=== PATIENT | male | born 1930 | race Caucasian/White ===

== ENCOUNTER → 2016-06-01 | Outpatient (CLI) | payer OTHER ==
[~2016-06-01] MED LIST: IOPAMIDOL (ISOVUE-300) 100 ML BTL IV ONE
--- NOTE | 2016-06-01 17:48 | CT ---
CT Abdomen and Pelvis (Without and With Contrast) CT Urogram at 1135 hours History: Hematuria. Technique: Spiral images were obtained through the abdomen and pelvis, without contrast, for renal s tone evaluation. 96 mL of Isovue-300 IV contrast were administered. After 2 minute and 10 minute de lays, spiral imaging was obtained through the abdomen and pelvis, without compression. Images were r econstructed in multiple planes for CT urogram imaging. Volume rendering was also performed. Dose r eduction techniques were utilized. CT Abdomen Findings: On the noncontrast images, there is no evidence of calculus projected over the k idneys or along the expected path of the ureters. No bladder calculus is seen, as well. With IV contrast administration, there is good uptake and excretion of contrast by the kidneys. No f illing defects in the urinary tracts. In the left kidney upper pole, there is an 8-mm possible cyst, and in the lower pole left kidney, there are 9-mm and 4-mm possible cysts although difficult to kacie acterize due to size. No solid exophytic masses noted in either kidney. No suspicious renal masses or urinary tract masses. Cholelithiasis, with at least four gallstones up to 1.5 cm. No pericholecystic fluid. In the right lobe of the liver, there is a 2-cm simple hepatic cyst, image #32 of series #4. No solid renal rony s noted. In the left lobe of the liver, there is an additional 2-cm probable cyst on image #27 of se raquel #4. Multiple pancreatic calcifications consistent with chronic pancreatitis, with associated fatty replac ement. No evidence of acute pancreatitis. No pancreatic ductal dilation. No biliary ductal dilatio n. Extensive atherosclerotic abdominal aorta calcifications, without aneurysm. No adrenal enlargement. No significant adenopathy. No bowel obstruction. CT Pelvis Findings: Delayed images demonstrate partial contrast opacifying the bladder posteriorly, with incomplete filling of the bladder. No definite bladder masses although 2/3rds of the anterior b ladder not well visualized due to no contrast opacification. No evidence of diverticulitis. No sign ificant adenopathy. Severe degenerative disk disease lumbar spine at L3-L4, L4-L5, and L5-S1, with circumferential osteop hytes and severe bilateral facet arthropathy, resulting in moderate to severe central canal stenosis at L3-L4 and L4-L5, and moderate to severe bilateral neural foraminal stenosis, worse at L4-L5 and L 5-S1. Impression: 1. No nephrolithiasis or urinary tract obstruction. 2. Probable subcentimeter left renal cysts, without evidence of solid renal masses or urothelial mas ses involving bilateral urinary tracts. 3. Incomplete opacification of the bladder, without definite bladder mass. Consider ultrasound blad nusrat evaluation. 4. Atherosclerotic aorta, without aneurysm. 5. Severe degenerative lumbar spine. 6. Cholelithiasis. 7. Hepatic cysts. 8. Sequela of chronic pancreatitis, with multiple pancreatic calcifications and fatty replacement.
== END ==
LOC: FIMAGING 10:37
PROVIDERS: ATTEND Internal Medicine
DX: R31.9 Hematuria, unspecified (principal); N28.9 Disorder of kidney and ureter, unspecified; I70.0 Atherosclerosis of aorta; M51.36 Other intervertebral disc degeneration, lumbar region; K80.20 Calculus of gallbladder without cholecystitis without obstruction; K76.89 Other specified diseases of liver; K86.89 Other specified diseases of pancreas
CPT/HCPCS: 74178; Q9967

== ENCOUNTER 2016-06-28 10:03 | Inpatient (IN) | payer OTHER ==
--- NOTE | 2016-06-28 10:47 | EDPHY ---
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 Patient's daughter 1st noticed 1 week ago mild left hand swelling, no known trauma, the patient's son saw him on Wednesday, 2 days ago in noticed increased redness and swelling, they brought him to urgent care, he had a pustule on his hand and they were able to send a culture, culture back today shows MRSA. Patient was placed on amoxicillin. Patient reports increased fatigue. He denies chest pain or shortness of breath. Patient reports he stopped taking his Lasix about 1 week ago because he felt like it was keeping him awake at night. He reports a mild increase in leg swelling. REVIEW OF SYSTEMS: A comprehensive 10 point review of systems is otherwise negative aside from elements mentioned in the history of present illness. (Nasima Allen) - Physical Exam Exam: Physical Exam Gen: Alert and Oriented, NAD, hard of hearing HEENT: PERRL, moist mucous membranes NECK: no meningismus CV: Distant heart tones PULM: CTAB, no wheezes ABDOMEN: Obese, soft, non tender to palpation, BS present BACK: No CVA tenderness NEURO: Moves all extremities, follows commands, no facial asymmetry EXTREMITIES: Left hand with dorsal swelling and erythema, tenderness to palpation, no erythema or tenderness distal to PIP joints, erythema extends up just proximal to elbow, patient unable to fully extend fingers, he is able to make a fist without difficulty, 2+ radial pulses, sensation intact to light touch SKIN: 2+ pitting edema bilateral lower extremities PSYCH: answers questions appropriately. (Nasima Allen) Constitutional: Initial Vital Signs Temperature (C) 36.4 C 06/28/16 10:10 Heart Rate 78 06/28/16 10:10 Respiratory Rate 20 06/28/16 10:10 Blood Pressure 129/70 H 06/28/16 10:10 O2 Sat (%) 92 06/28/16 10:10 O2 Delivery Mode Room Air Allergies/Adverse Reactions: No Known Allergies Allergy (Verified 06/28/16 10:04) Home Medications: Medication Instructions Recorded Aspirin [Aspirin 81mg (*)] 81 mg PO DAILY 06/28/16 Cholecalciferol (Vitamin D3) 5,000 unit PO DAILY 06/28/16 [Vitamin D3] Dabigatran Etexilate Mesyl 150 mg PO BID 06/28/16 [Pradaxa 150 MG (*)] Ezetimibe [Zetia 10 MG (*)] 10 mg PO DAILY 06/28/16 Herbals/Supplements -Info Only 1 ea PO DAILY 06/28/16 metFORMIN SR [Glucophage XR 500 mg 1,000 mg PO BIDMEAL 06/28/16 (*)] Acetaminophen [Tylenol 325mg (*)] 650 mg PO Q4HRS PRN #0 tab 07/02/16 Polyethylene Glycol 3350 [Miralax 17 gm PO DAILY PRN #0 pkt 07/02/16 17 gm (*)] Sennosides/Docusate Sodium 1 - 2 tab PO BID #0 tab 07/02/16 [Senokot-S] Vancomycin HCl/Normal Saline 1 gm IV Q12H #0 bag 07/02/16 [Vancomycin 1 gm (Premix)] Medical Decision Making - Diagnostics Imaging: Left hand x-ray independently reviewed by me- Impression: 1. There is no acute fracture identified. 2. Scapholunate diastases, indeterminate chronicity. 3. Multilevel degenerative osteoarthritic features. Dictated By: Oleg Mon MD Chest x-ray independently reviewed by me- Impression: Cardiomegaly with mild chronic pulmonary venous hypertension in this patient with a prior CABG. Dictated By: Oleg Mon MD (Nasima Allen) ED Course/Re-evaluation: 86-year-old [id number] diabetic presents with a cellulitis to his left hand. Patient had hand swelling that started on 7 days ago, 2 days ago was started on Keflex and had a culture at Urgent Care that today resulted MRSA. Patient presents to the ER today with worsening hand redness and swelling with fatigue. IV established, CBC, chemistry panel, blood cultures and left hand x-ray obtained. Patient has an elevated white blood cell count, and blood sugar that is 265. X-ray obtained. Patient his started on 1 g of Vanco and has been admitted to the hospitalist for further IV antibiotics. ( Nasima Allen) Differential Diagnosis: Diagnosis considered but not limited to abscess, cellulitis, tenosynovitis, necrotizing fasciitis (Nasima Allen) Other Provider: Sepsis Evaluation Note: The patient presents to the ED with potential infection identified as cellulitis. The patient did not have evidence of SIRS; him is afebrile, normal heart rate, normal respiratory rate, and normal WBC. Patient did not have evidence of end-organ dysfunction. The patient was evaluated and managed by the Physician [employer]/ Nurse Practitioner. I discussed the patient's presentation and course with the midlevel provider with them and agree with the evaluation. My co-signature indicates that I have reviewed this chart and I agree with the findings and plan of care as documented. I am the secondary supervising physician. (Sammie Florentino) - Data Points Laboratory Results: Laboratory Results 06/28/16 10:50 06/28/16 10:50 Medications Given: Discontinued Medications Aspirin (Aspirin) 81 mg PO DAILY AMISH Stop: 12/26/16 08:59 Last Admin: 07/02/16 09:05 Dose: 81 mg Dabigatran (Pradaxa) 150 mg PO BID AMISH Stop: 12/25/16 13:59 Last Admin: 07/02/16 09:05 Dose: 150 mg Docusate Sodium (Colace) 100 mg PO DAILY AMISH Stop: 12/26/16 08:59 Last Admin: 06/29/16 09:27 Dose: 100 mg Ezetimibe (Zetia) 10 mg PO DAILY AMISH Stop: 12/25/16 13:59 Last Admin: 07/02/16 09:05 Dose: 10 mg Vancomycin/Sodium Chloride (Vancomycin 1 Gm (Premix)) 250 mls @ 250 mls/hr IV EDNOW ONE PRN Reason: Protocol Stop: 06/28/16 12:39 Last Admin: 06/28/16 12:06 Dose: 250 mls Vancomycin/Sodium Chloride (Vancomycin 1 Gm (Premix)) 250 mls @ 250 mls/hr IV Q12H [facility] Stop: 07/29/16 00:00 Last Admin: 06/29/16 14:26 Dose: 250 mls Vancomycin HCl 750 mg/ (Dextrose) 165 mls @ 165 mls/hr IV Q12H [facility] PRN Reason: Protocol Stop: 07/30/16 02:29 Last Admin: 06/30/16 14:55 Dose: 165 mls Vancomycin/Sodium Chloride (Vancomycin 1 Gm (Premix)) 250 mls @ 250 mls/hr IV Q12H [facility] PRN Reason: Protocol Stop: 07/31/16 02:29 Last Admin: 07/02/16 15:25 Dose: 250 mls Insulin Human Lispro (Humalog Lispro) 0 unit SC TIDMEAL [facility] PRN Reason: Protocol Stop: 12/25/16 17:59 Last Admin: 07/02/16 12:20 Dose: 4 units Magnesium Hydroxide (Milk Of Magnesia) 30 ml PO DAILY PRN; Protocol PRN Reason: Constipation Stop: 12/26/16 15:29 Last Admin: 06/30/16 09:49 Dose: 30 ml Metformin HCl (Glucophage Xr) 1,000 mg PO BIDMEAL [facility] Stop: 12/25/16 17:59 Last Admin: 07/02/16 07:54 Dose: 1,000 mg Oxycodone HCl (Oxycodone Ir) 5 - 10 mg PO Q3HRS PRN PRN Reason: Pain, Severe Able to Take PO Stop: 07/08/16 13:49 Last Admin: 06/29/16 20:37 Dose: 10 mg Polyethylene Glycol (Miralax) 17 gm PO DAILY PRN; Protocol PRN Reason: Constipation, patient prefers Stop: 12/26/16 15:29 Last Admin: 06/30/16 12:37 Dose: 17 gm Senna (Senexon Oral Liquid) 8.8 mg PO BID [facility] PRN Reason: Protocol Stop: 12/26/16 15:30 Last Admin: 06/29/16 20:38 Dose: Not Given Senna/Docusate Sodium (Senokot-S) 1 - 2 tab PO BID [facility] PRN Reason: Protocol Stop: 12/26/16 20:59 Last Admin: 07/02/16 09:05 Dose: 2 tab Departure - Departure Disposition: [facility] Acute Clinical Impression: Cellulitis Qualifiers: Site of cellulitis: extremity Site of cellulitis of extremity: upper extremity Laterality: left Qualified Code(s): L03.114 - Cellulitis of left upper limb Condition: Fair
[2016-06-28 11:14] LABS: % IMMATURE GRANULYOCYTES 0.7 % (0.0-1.1); ABSOLUTE IMMATURE GRANULOCYTES 0.07 10^3/uL (0.00-0.10); ADD DIFF? NO; ADD MORPH? NO; ADD SCAN? NO; ATYPICAL LYMPHOCYTE FLAG 20 (0-99); FRAGMENT RBC FLAG 0 (0-99); HEMATOCRIT 39.4 % (40.0-51.0); HEMOGLOBIN 13.4 g/dL (13.7-17.5); LEFT SHIFT FLG 0 (0-99); LIPEMIA HEMOLYSIS FLAG 90 (0-99); MEAN CELL HEMOGLOBIN 31.5 pg (27.9-34.1); MEAN CELL VOLUME 92.5 fL (81.5-99.8); MEAN PLATELET VOLUME 9.8 fL (8.7-11.7); PLATELET CLUMPS FLAG 0 (0-99); PLATELET COUNT 214 10^3/uL (150-400); RED BLOOD CELL COUNT 4.26 10^6/uL (4.40-6.38); RED CELL DISTRIBUTION WIDTH 13.9 % (11.5-15.2)
[2016-06-28] MEDS ORDERED: VANCOMYCIN HCL/NORMAL SALINE 250 ML IV ONE (11:40)
[2016-06-28 11:54] LABS: ANION GAP 12 mEq/L (8-16); CALCIUM 9.3 mg/dL (8.5-10.4); CARBON DIOXIDE 24 mEq/l (22-31); CHLORIDE 102 mEq/L (97-110); CREATININE 0.5 mg/dL (0.7-1.3); GLOMERULAR FILTRATION RATE > 60; GLUCOSE 264 mg/dL (70-100); POTASSIUM 4.4 mEq/L (3.5-5.2); SODIUM 138 mEq/L (134-144)
[2016-06-28] MEDS ORDERED: ONDANSETRON 4 MG/2 ML VIAL IVP PRN (13:50)
[2016-06-28] MEDS ORDERED: ACETAMINOPHEN 325 MG TAB PO PRN (13:50)
[2016-06-28] MEDS ORDERED: ONDANSETRON DISINTEGRATING 4 MG TAB PO PRN (13:50)
[2016-06-28] MEDS ORDERED: D50W 25 GM/50 ML SYR IVP PRN (13:54)
[2016-06-28] MEDS: DABIGATRAN ETEXILATE MESYL 150 MG CAP PO SCH ×2 (15:01→20:33)
[2016-06-28] MEDS: EZETIMIBE 10 MG TAB PO SCH (15:01)
--- NOTE | 2016-06-28 16:30 | PDGENHP ---
History and Physical - Chief Complaint hand redness, swelling - History of Present Illness 86 yo male with h/o CAD, DM, bovine AVR presents to ED with hand swelling and redness. This started about a week ago and has progressively worsening despite taking Cephalexin. No fevers/chills. No CP or SOB. There is no h/o injury or trauma. History Information - Allergies/Home Medication List Allergies/Adverse Reactions: No Known Allergies Allergy (Verified 06/28/16 10:04) Home Medications: Aspirin [Aspirin 81mg (*)] 81 mg PO DAILY 06/28/16 [Last Taken 06/27/16] Cephalexin [Keflex (*)] 500 mg PO TID 06/28/16 [Last Taken 06/27/16 20:00] Cholecalciferol (Vitamin D3) [Vitamin D3] 5,000 unit PO DAILY 06/28/16 [Last Taken 06/27/16] Dabigatran Etexilate Mesyl [Pradaxa 150 MG (*)] 150 mg PO BID 06/28/16 [Last Taken 06/27/16 20:00] Ezetimibe [Zetia 10 MG (*)] 10 mg PO DAILY 06/28/16 [Last Taken 06/27/16] Herbals/Supplements -Info Only 1 ea PO DAILY 06/28/16 [Last Taken Unknown] metFORMIN SR [Glucophage XR 500 mg (*)] 1,000 mg PO BIDMEAL 06/28/16 [Last Taken 06/27/16] I have personally reviewed and updated: family history, medical history, social history, surgical history - Past Medical History Additional medical history: bovine AVR, CAD s/p stents, neuropathy, DM, spinal stenosis (cervical and lumbar), pacemaker - Surgical History Additional surgical history: CABG x5, attempted anterior cervical spinal fusion due to anesthesia complications - Family History Positive for: non-pertinent - Social History Smoking Status: Former smoker Alcohol Use: None Drug Use: Other (CBD oil for chronic pain) Review of Systems ROS: 10pt was reviewed & negative except for what was stated in HPI & below Physical Exam Temp Pulse Resp BP Pulse Ox 36.4 C 95 16 115/74 90 L 06/28/16 16:02 06/28/16 16:02 06/28/16 16:02 06/28/16 16:02 06/28/16 16:02 Constitutional: no apparent distress Eyes: PERRL Ears, Nose, Mouth, Throat: moist mucous membranes Cardiovascular: regular rate and rhythym, systolic murmur Respiratory: no respiratory distress, clear to auscultation Gastrointestinal: normoactive bowel sounds, soft, non-tender abdomen Skin: warm Musculoskeletal: other (left hand with marked erythema and edema, erythema extends into mid forearm. distal sensation intact, 2+ radial pulse) Neurologic: AAOx3 Psychiatric: interacting appropriately Lab Data & Imaging Review 06/29/16 05:16 06/29/16 05:16 WBC 10.41 10^3/uL (3.80-9.50) H 06/28/16 10:50 RBC 4.26 10^6/uL (4.40-6.38) L 06/28/16 10:50 Hgb 13.4 g/dL (13.7-17.5) L 06/28/16 10:50 Hct 39.4 % (40.0-51.0) L 06/28/16 10:50 MCV 92.5 fL (81.5-99.8) 06/28/16 10:50 MCH 31.5 pg (27.9-34.1) 06/28/16 10:50 MCHC 34.0 g/dL (32.4-36.7) 06/28/16 10:50 RDW 13.9 % (11.5-15.2) 06/28/16 10:50 Plt Count 214 10^3/uL (150-400) 06/28/16 10:50 MPV 9.8 fL (8.7-11.7) 06/28/16 10:50 Neut % (Auto) 75.7 % (39.3-74.2) H 06/28/16 10:50 Lymph % (Auto) 11.0 % (15.0-45.0) L 06/28/16 10:50 Sargent % (Auto) 12.0 % (4.5-13.0) 06/28/16 10:50 Eos % (Auto) 0.2 % (0.6-7.6) L 06/28/16 10:50 Baso % (Auto) 0.4 % (0.3-1.7) 06/28/16 10:50 Nucleat RBC Rel Count 0.0 % (0.0-0.2) 06/28/16 10:50 Absolute Neuts (auto) 7.89 10^3/uL (1.70-6.50) H 06/28/16 10:50 Absolute Lymphs (auto) 1.14 10^3/uL (1.00-3.00) 06/28/16 10:50 Absolute Monos (auto) 1.25 10^3/uL (0.30-0.80) H 06/28/16 10:50 Absolute Eos (auto) 0.02 10^3/uL (0.03-0.40) L 06/28/16 10:50 Absolute Basos (auto) 0.04 10^3/uL (0.02-0.10) 06/28/16 10:50 Absolute Nucleated RBC 0.00 10^3/uL (0-0.01) 06/28/16 10:50 Immature Gran % 0.7 % (0.0-1.1) 06/28/16 10:50 Immature Gran # 0.07 10^3/uL (0.00-0.10) 06/28/16 10:50 Sodium 138 mEq/L (134-144) 06/28/16 10:50 Potassium 4.4 mEq/L (3.5-5.2) 06/28/16 10:50 Chloride 102 mEq/L (97-110) 06/28/16 10:50 Carbon Dioxide 24 mEq/l (22-31) 06/28/16 10:50 Anion Gap 12 mEq/L (8-16) 06/28/16 10:50 BUN 16 mg/dL (7-23) 06/28/16 10:50 Creatinine 0.5 mg/dL (0.7-1.3) L 06/28/16 10:50 Estimated GFR > 60 06/28/16 10:50 Glucose 264 mg/dL (70-100) H 06/28/16 10:50 Calcium 9.3 mg/dL (8.5-10.4) 06/28/16 10:50 Assessment & Plan Assessment: Hand cellulitis - Focal fluid collection over 2nd MCP without drainage, though raises some concern for septic joint. Prior culture at [facility] grew MRSA. Xray showed just OA changes. Erythema extending up forearm seems to be receding since receiving IV Vanco in the ED. -hand surgery to evaluate -ID consult planned for tomorrow -cont IV Vancomycin -BCx's pending A fib - rate controlled, stroke prevention with Pradaxa, continue for now. DM - bg >200 on arrival. CAD - stable, no symptoms, cont outpt meds. Full code Dispo - inpt, will likely require >48 hrs hospitalization for IV atbx and management of cellulitis
--- NOTE | 2016-06-28 17:52 | SOAPPROG ---
SOAP Progress Note Assessment/Plan: Assessment: HPI: 86 y/o male with left dorsal index MCPJ superficial wound which developed several days ago s/p I&D, culture (demonstrating MRSA) at [facility] , and initiation of Amoxicillin. He presented to the [facility] ED due to persistent infection in this area as well as surrounding erythema extending overlying his dorsal hand, wrist and forearm. PE: General: NAD AVSS LUE: 4mm x 3mm raised area overlying the dorsal index MCPJ c/w a superficial abscess , no active drainage // no pain with passive or active ROM of left index MCPJ / / no pain with passive or active ROM of left wrist +EDC-index, EIP, EDC-long, ring, and small fingers +FDS, FDP +DI, PI +M/R/U SILT Left hand radiographs: diffuse soft tissue swelling, diffuse arthritis Assessment and Plan 86 y/o male with a recurrent left dorsal index MCPJ superficial abscess (+MRSA) s/p previous I&D several days ago -As such, I have discussed with the patient the risks, benefits, alternatives, and complications associated with both non-operative (specifically, IV antibiotics) and operative (specifically, left hand abscess decompression with irrigation and debridement) forms of treatment and I am recommending operative intervention -He fully understood the risks, benefits, alternatives, and complications associated with both forms of treatment and wishes to proceed with operative intervention -He has provided his verbal consent for the procedure and the procedure was performed at the bedside (see operative note for details of procedure) -Remain in current dressing with packing strip in place for the next 48 hours ( do not remove dressing) -Keep left hand clean and dry -Recommend consultation with Infectious Disease for long-term IV antibiotic recommendations as abscess cavity communicated with extensor tendons to the index finger -Will change dressing and packing strip in 2 days and allow wound to heal from the inside out -Full consult and operative note to follow Plan: 06/28/16 17:45 Objective: Vital Signs Temp Pulse Resp BP Pulse Ox 36.4 C 95 16 115/74 90 L 06/28/16 16:02 06/28/16 16:02 06/28/16 16:02 06/28/16 16:02 06/28/16 16:02 ICD10 Worksheet Patient Problems: Problems Problem Status Onset Nicotine dependence Active
--- NOTE | 2016-06-28 17:54 | POSTOPPROG ---
Post Op Note Date of Operation: 06/28/16 Surgeon: Lorne Naik Travel Director: None Anesthesiologist: None Anesthesia: Local (Specify) Pre-op Diagnosis: Left dorsal index MCPJ abscess Post-op Diagnosis: Left dorsal index MCPJ abscess Indication: Left dorsal index MCPJ abscess Procedure: Left hand abscess decompression with irrigation and debridement Findings: communication of abscess cavity with the EDC-index and the EIP tendons Inf/Abcess present in the surg proc area at time of surgery?: Yes Depth: Deep Incisional (Fascial) EBL: Minimal Complications: None Drains: Other (1/4 inch nu-gauze packing strip was placed into the wound)
[2016-06-28] MEDS: INSULIN LISPRO 100 UNIT/ML SC SCH (18:22)
[2016-06-28] MEDS: metFORMIN SR 500 MG TAB PO SCH (18:37)
[2016-06-28] MEDS: oxyCODONE IR 5 MG TAB PO PRN (20:33)
--- NOTE | 2016-06-28 21:04 | GCON ---
Patient Name: VONNIE SO N-Number: [id number] Date of : 1930 Patient Status: Inpatient Attending Doctor: Kae Sun MD Consulting Doctor: Lorne Naik MD Date of service: 06/28/16 CPT codes: CPT code 67582 ER visit requiring admission or initial inpatient visit, level three Modifier 57 decision for surgery CHIEF COMPLAINT: Left hand swelling and erythema HISTORY OF PRESENT ILLNESS: This is a very pleasant 86 year old male with a significant history for sustaining a superficial laceration to the dorsal aspect of his left index MCPJ several days ago. Following the laceration, he developed a small abscess in this area and was initially evaluated at the [facility] where he underwent an I&D and culture and was started on oral Amoxicillin. The culture results demonstrated MRSA and he presented to the [facility] ED earlier today due to persistent swelling, erythema and pain. PROBLEM LIST: Left hand abscess, left hand, wrist, and forearm cellulitis, atrial fibrillation , DM, CAD s/p CABG in 1996, stents, pacemaker, aortic valve replacement (bovine valve in October of 2013), bilateral rotator cuff tears, cervical and lumbar stenosis, RADHIKA PAST MEDICAL HISTORY: DM, CAD s/p CABG in 1996, stents, pacemaker, aortic valve replacement (bovine valve in October of 2013), bilateral rotator cuff tears, cervical and lumbar stenosis, RADHIKA SURGERIES: CABG, stents, pacemaker, aortic valve replacement SOCIAL HISTORY: Denies tobacco, alcohol, or illicit drug use FAMILY HISTORY: Non-contributory CURRENT MEDICATIONS: See Subtextual ALLERGIES: NKDA REVIEW OF SYSTEMS Constitutional: No unexpected weight loss, weight gain, fevers, chills, or fatigue. Eyes: No blurred or double vision, no eye pain, redness or swelling. ENT: No headaches, difficulty swallowing, nose bleeds, tinnitus, or earaches. Cardiovascular: No chest pain, palpitations, fainting or murmurs. Respiratory: No shortness of breath, wheezing, cough, of difficulty breathing. GI: No reflux, no nausea or vomiting, no constipation, diarrhea, or bloody stools. Genitourinary: No urinary frequency or urgency, no pain with urination. Skin: No skin changes, rashes, itching, or redness. Neurologic: No unsteadiness of gait, no dizziness, tremors, or seizures. Psychiatric: No nervousness, anxiety, depression, or hallucinations. Hematologic: No increased bleeding or easy bruising. Endocrine: No excessive thirst or urination and no heat or cold intolerances. Allergic: No reactions to food or environment. Musculoskeletal: See history of present illness. PHYSICAL EXAM General: No apparent distress. Orientation: Alert and oriented times three Mood and affect: Calm, appropriate. Gait and station: Normal gait and station. Skin: Left dorsal index MCPJ abscess with surrounding cellulitis Lymph: Non tender neck, axillary and inguinal nodes. Chest: Equal expansion, no pain with deep breaths, speaks in coherent sentences. Cardiovascular: Regular pulse. Abdomen: Soft, non-tender, no masses, no palpable hernias. Bilateral wrist examination Inspection/palpation: Right: Normal resting posture. Left: Left dorsal hand, wrist, and forearm erythema Wrist ROM Wrist Flexion: 90 / 70 / 90 Extension: 90 / 70 / 90 Forearm Supination: 0-80 / 0-60 / 0-80 Pronation: 0-80 / 0-60 / 0-80 Wrist/hand strength (R / L / Normal) EDC: 5 / 4 / 5 EPL (PIN): 5 / 5 / 5 FPL (AIN): 5 / 5 / 5 FDS (C8): 5 / 5 / 5 FDP (C8): 5 / 5 / 5 FDP-I (C8 / AIN): 5 / 5 / 5 DI (C8-T1): 5 / 5 / 5 PI (C8-T1): 5 / 5 / 5 Wrist/hand sensory MABC : + / + / + LABC: + / + / + Median: + / + / + Palmar cutaneous: + / + / + Radial: + / + / + SBRN: + / + / + Ulnar: + / + / + DSBUN: + / + / + Bilateral finger examination Inspection/palpation: Right: Soft, no tenderness to palpation. Left: 4mm x 3mm superficial abscess overlying the dorsal index MCPJ, no active drainage Finger ROM Index MCP: 0-80 / 0-60 / 0-80 PIP: 0-105 / 0-85 / 0-105 DIP: 0-75 / 0-55 / 0-75 Long MCP: 0-80 / 0-80 / 0-80 PIP: 0-105 / 0-105 / 0-105 DIP: 0-75 / 0-75 / 0-75 Ring MCP: 0-80 / 0-80 / 0-80 PIP: 0-105 / 0-105 / 0-105 DIP: 0-75 / 0-75 / 0-75 Small MCP: 0-80 / 0-80 / 0-80 PIP: 0-105 / 0-105 / 0-105 DIP: 0-75 / 0-75 / 0-75 Finger motor and sensory Index FDS: + / + / + FDP: + / + / + EDC: + / + / + RDN: + / + / + UDN: + / + / + Long FDS: + / + / + FDP: + / + / + EDC: + / + / + RDN: + / + / + UDN: + / + / + Ring FDS: + / + / + FDP: + / + / + EDC: + / + / + RDN: + / + / + UDN: + / + / + Small FDS: + / + / + FDP: + / + / + EDC: + / + / + RDN: + / + / + UDN: + / + / + Medical decision making Data Imaging study: left hand radiographs, three views Action: interpreted Interpretation / pertinent findings: diffuse soft tissue swelling, diffuse arthritis Diagnoses New diagnosis: left dorsal index MCPJ superficial abscess, cellulitis Work-up planned: yes: see assessment and plan Assessment and plan This is a very pleasant 86 year old male with a left dorsal index MCPJ abscess ( +MRSA) with surrounding cellulitis after a superficial laceration several days ago -As such I have discussed with the patient the risks, benefits, alternatives, and complications associated with both non-operative (specifically, observation , intravenous antibiotics) and operative (specifically, left dorsal hand abscess decompression with irrigation and debridement) forms of treatment -The patient fully understands the risks, benefits, alternatives, and complications of both forms of treatment and the patient wishes to proceed with operative intervention as outlined above -He has provided his verbal consent for the procedure and the procedure was performed without difficulty at the patients bedside -He will leave the current dressing and packing strip in place and keep his left hand clean and dry -Plans will be made to remove his original packing strip in 2 days and replace it with a new packing strip to allow the wound to heal from the inside out -In the interim, infectious disease will be consulted and the patient will be continued on a course of intravenous antibiotics Time I have spent 80 minutes of [id number] time with the patient during this visit. Over fifty percent of this time was spent counseling the patient on the risks, benefits, alternatives, and complications of both non-operative and operative forms of treatment as outlined above. /[id number]/MODL MTDD
--- NOTE | 2016-06-28 22:20 | GOP ---
PATIENT: VONNIE SO DATE OF SERVICE: 06/28/16 PATIENT DATE OF : 1930 SURGEON: Lorne Naik M.D. [employer] OXYGEN FURNACE: NONE ANESTHESIA: Regional anesthesia by surgeon PRE-OPERATIVE DIAGNOSES: Left dorsal hand abscess (ICD-10 code L02.519 -- cutaneous abscess of hand) POST-OPERATIVE DIAGNOSES: Left dorsal hand abscess (ICD-10 code L02.519 -- cutaneous abscess of hand) OPERATIVE PROCEDURES: CPT code 22300 Left dorsal hand abscess incision and drainage CPT code 20674 Left index finger drainage of tendon sheath (EDC-index) CPT code 19376 Left index finger drainage of tendon sheath (EIP) CPT code 02559 Debridement of muscle and fascia, first 20 square cm or less Modifier 47 Regional anesthesia by surgeon EBL: 1cc COMPLICATIONS: None TOURNIQUET TIME: Not applicable IMPLANTS: One inch Nu-gauze packing strip BRIEF CLINICAL NOTE: This is a very pleasant 86 year old male with a significant history for a left dorsal index MCP joint abscess (positive for MRSA ) with surrounding cellulitis. As such, I discussed the risks, benefits, alternatives, and complications associated with both non-operative (specifically , observation, antibiotics) and operative (specifically, left dorsal hand abscess decompression with irrigation and debridement) forms of treatment. The patient fully understood the risks, benefits, alternatives, and complications associated with both forms of treatment and wished to proceed with operative intervention as outlined above. The patient signed the informed consent form for surgery. OPERATIVE NOTE: On the day of surgery, all of the patients questions were answered. A formal, Time-Out procedure was performed. The patient was identified by name, medical record number, social security number, and date of . In addition, the patients left upper extremity was identified as the correct portion of the patients body for surgery with the patients left dorsal hand and index finger being identified as the correct portions of that extremity for surgery. The extremity was then prepped and draped in the normal sterile fashion. A 50:50 mixture of 0.5% Marcaine with 1:200,000 components of epinephrine and 1% lidocaine without epinephrine was then utilized to perform a regional block of the operative site. A number 15 blade was then utilized to incise the skin longitudinally overlying the dorsal aspect of the left index finger MCP joint. Immediately after incising the skin, several milliliters of purulent material was expressed from the wound. The entire abscess cavity was then sharply surgically debrided and copiously irrigated with sterile normal saline. Of note, the EDC-index and the EIP tendons were visible at the base of the abscess cavity. As such, both tendon sheaths were incised longitudinally and both tendon sheaths were copiously irrigated with sterile normal saline. Meticulous hemostasis was obtained throughout the wound with Bovie cautery. A one-quarter inch Nu-gauze packing strip was then inserted into the wound and the distal and proximal aspects of the incision were re-approximated with 4-0 nylon sutures. The skin was then cleaned with sterile normal saline and dried. A betadine soaked gauze was then applied to the wound followed by a dry sterile dressing and compressive Coban wrap. At the completion of the procedure, the left index finger demonstrated brisk capillary refill. POST-OPERATIVE PLAN: The patient will remain in the current dressing with current packing strip in place for the next two days. In two days, the original packing strip will be removed and replaced with a new packing strip to allow the wound to heal from the inside-out. The infectious disease team will be consulted for recommendations on long-term intravenous antibiotics. /[id number]/MODL MTDD
[2016-06-29] MEDS ORDERED: VANCOMYCIN 1 GM in D5W 250 ML IV SCH
[2016-06-29] MEDS: VANCOMYCIN HCL/NORMAL SALINE 250 ML IV SCH ×2 (00:58→14:26)
[2016-06-29 03:07] LABS: HEMOGLOBIN A1C 7.9 % (4.0-6.0)
[2016-06-29 06:06] LABS: % IMMATURE GRANULYOCYTES 0.4 % (0.0-1.1); ABSOLUTE IMMATURE GRANULOCYTES 0.04 10^3/uL (0.00-0.10); ADD DIFF? NO; ADD MORPH? NO; ADD SCAN? NO; ATYPICAL LYMPHOCYTE FLAG 10 (0-99); FRAGMENT RBC FLAG 0 (0-99); HEMATOCRIT 38.6 % (40.0-51.0); LEFT SHIFT FLG 0 (0-99); LIPEMIA HEMOLYSIS FLAG 80 (0-99); MEAN CELL HEMOGLOBIN 31.4 pg (27.9-34.1); MEAN CELL HEMOGLOBIN CONCENTR. 33.7 g/dL (32.4-36.7); MEAN CELL VOLUME 93.2 fL (81.5-99.8); MEAN PLATELET VOLUME 9.7 fL (8.7-11.7); PLATELET CLUMPS FLAG 10 (0-99); PLATELET COUNT 220 10^3/uL (150-400); RED BLOOD CELL COUNT 4.14 10^6/uL (4.40-6.38)
[2016-06-29 06:11] LABS: ANION GAP 10 mEq/L (8-16); CALCIUM 8.9 mg/dL (8.5-10.4); CARBON DIOXIDE 24 mEq/l (22-31); CHLORIDE 104 mEq/L (97-110); CREATININE 0.5 mg/dL (0.7-1.3); GLOMERULAR FILTRATION RATE > 60; GLUCOSE 174 mg/dL (70-100); POTASSIUM 4.4 mEq/L (3.5-5.2); SODIUM 138 mEq/L (134-144)
[2016-06-29] MEDS ORDERED: DOCUSATE SODIUM 100 MG CAP PO SCH (09:00)
[2016-06-29] MEDS: DABIGATRAN ETEXILATE MESYL 150 MG CAP PO SCH ×2 (09:27→20:37)
[2016-06-29] MEDS: ASPIRIN 81 MG CHEWABLE TAB PO SCH (09:27)
[2016-06-29] MEDS: metFORMIN SR 500 MG TAB PO SCH ×2 (09:27→18:44)
[2016-06-29] MEDS: EZETIMIBE 10 MG TAB PO SCH (09:27)
[2016-06-29] MEDS: INSULIN LISPRO 100 UNIT/ML SC SCH ×3 (09:28→20:49)
[2016-06-29] MEDS ORDERED: LACTULOSE 20 GM/30 ML UDCUP PO PRN (15:30)
[2016-06-29] MEDS ORDERED: BISACODYL 10 MG SUPP PR PRN (15:30)
[2016-06-29] MEDS ORDERED: POLYETHYLENE GLYCOL 3350 17 GM PKT PO PRN (15:30)
[2016-06-29] MEDS ORDERED: SENNOSIDES 17.6 MG/10 ML UDL PO SCH (15:31)
--- NOTE | 2016-06-29 15:47 | HOSPPROG ---
Hospitalist Progress Note Assessment/Plan: Hand cellulitis - Improving on IV Vanc. Cx grew MRSA sensitive to Vanc, Tetracycline. BCx's pending. -cont IV Vancomycin -likely d/c on oral Doxy -f/u BCx's A fib - rate controlled, stroke prevention with Pradaxa, continue for now. DM - bg >200 on arrival. Improved now on SSI. CAD - stable, no symptoms, cont outpt meds. Full code Dispo - inpt, will likely require >48 hrs hospitalization for IV atbx and management of cellulitis. PT/OT evals recommending SNF. Daughter would like him to go to [place]. CM consult requested. Objective: Vital Signs Temp Pulse Resp BP Pulse Ox 36.7 C 79 22 H 121/66 H 93 06/29/16 11:51 06/29/16 11:51 06/29/16 11:51 06/29/16 11:51 06/29/16 11:51 Laboratory Results 06/29/16 05:16 06/29/16 05:16 06/28/16 06/29/16 06/30/16 05:59 05:59 05:59 Intake Total 155 Output Total 450 225 Balance -295 -225 - Physical Exam Constitutional: no apparent distress Eyes: PERRL Ears, Nose, Mouth, Throat: moist mucous membranes Cardiovascular: regular rate and rhythym, no murmur, rub, or gallop Respiratory: no respiratory distress, clear to auscultation Gastrointestinal: normoactive bowel sounds, soft, non-tender abdomen Skin: warm Musculoskeletal: other (Left hand with decreased erythema and edema, improved ROM, dressing c/d/i) Neurologic: AAOx3 ICD10 Worksheet Patient Problems: Problems Problem Status Onset Cellulitis Acute Nicotine dependence Active
[2016-06-29] MEDS: MAGNESIUM HYDROXIDE 30 ML UDCUP PO PRN (18:44)
--- NOTE | 2016-06-29 20:28 | GCON ---
INPATIENT INFECTIOUS DISEASE CONSULTATION REFERRING PHYSICIAN: Lorne Naik MD REASON FOR CONSULTATION: MRSA infection left hand. HISTORY OF PRESENT ILLNESS: Patient is an 86-year-old male, who has underlying diabetes, coronary a rtery disease, and a porcine aortic valve that presented to the emergency room on 06/28/2016 complai marciano of progressive swelling and redness in his left hand. The patient had been taking oral Keflex. This did not help the progression of disease over the last 5-7 days. He denied any systemic sympt oms such as fever or chills. He has noted, however, that the erythema began moving up his left arm toward the elbow. He was seen by Dr. Lorne Naik in Hand Surgery at the emergency room and was ta samir to the operating theater on the early evening of 06/28/2016. He underwent a left dorsal finger MCP abscess decompression with irrigation and debridement. The extensor tendons of the index finger were involved. No bone involvement. No joint space involvement noted. The abscess cavity was pac ked with Nu Gauze. The patient continued on empiric IV antibiotic therapy with vancomycin 1 g IV q. 12 hours. Currently, the patient is resting comfortably in his hospital bed. He denies any continu ing systemic symptoms of fevers or chills. He notes that the redness in the left upper extremity bee s regressed significantly. His hand is also significantly less swollen. PAST MEDICAL HISTORY: 1. Coronary artery disease. 2. Diabetes mellitus. 3. 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 4. Cervical lumbar spinal stenosis. 5. Cardiac arrhythmia. PAST SURGICAL HISTORY: 1. Status post pacemaker placement. 2. Status post aortic valve replacement with a porcine aortic valve. 3. Status post coronary artery stenting. ANTIBIOTICS: Vancomycin. ALLERGIES: The patient has no known drug allergies. SOCIAL HISTORY: The patient is a former tobacco user. No tobacco currently. No alcohol use. No o ther drug use noted. FAMILY HISTORY: Reviewed and noncontributory. REVIEW OF SYSTEMS: Other than that detailed above in history of present illness, a comprehensive 10 -system review is negative. PHYSICAL EXAMINATION: VITAL SIGNS: Temperature maximum is 37.3, temperature current is 36.6, heart rate is 79, respiratory rate is 20, blood pressure is 139/85. GENERAL: The patient is a well-form ed, well-nourished, elderly male, in no acute distress. He is not toxic in appearance. He is alert oriented x3. He has a pleasant demeanor. HEENT: Normocephalic for age. Atraumatic. No scleral icterus. No oral lesion. No drainage from the nares. Eyes: Conjunctivae within normal limits. P upils are equal, round, bilaterally. NECK: Supple without meningismus. LUNGS: Clear to auscultat ion bilaterally with good effort. HEART: Regular rate and rhythm. No murmur, rub, or gallop noted . No significant peripheral edema. SKIN: Warm and dry to the touch. Patient has drawn borders of erythema near the elbow of the left arm. The erythema has regressed significantly from these drawn borders. Postoperative dressing on the left hand is intact. No strike through seen. There is sti ll some residual proximal erythema intermediate up the forearm. Generally nontender in the forearm and d orsal forearm area. MUSCULOSKELETAL: No other muscle belly tenderness is noted. No joint line eff usion or arthritis seen. NEURO: Cranial nerves 2 12 seem to be intact. Peripheral sensation seems decreased in extremities. LABORATORY DATA: Patient has a CBC dated 06/29/2016, shows a white blood cell count of 10.05, hemog lobin 13.0, hematocrit 38.6, platelet count of 220. Differential is within normal limits. Serum ch emistry on 06/29/2016 shows sodium 138, potassium 4.4, chloride of 104, bicarbonate 24, BUN 16, crea tinine 0.5. MICROBIOLOGIC DATA: Patient has blood cultures dated 06/28/2016 which are pending. ASSESSMENT: Methicillin-resistant Staphylococcus aureus hand infection secondary to positive cultur e from a swab taken on 06/26/2016. This clearly explains why the therapy with beta lactam antibioti cs was unsuccessful prior to his admission. We will continue him on IV vancomycin. Given his age, 1 g IV q.12 hours may be a little high. We will empirically decrease the antibiotic to 750 mg IV q. 12 hours. We will follow up with vancomycin troughs. We will follow his clinical course. PLAN: 1. Continue vancomycin but decrease dosage given age and decreased creatinine clearance. 2. Follow clinical course, appears to be improving. 3. Follow operative opinion regarding healing of the infected wound. /[id number]/MODL
[2016-06-29] MEDS: SENNOSIDES/DOCUSATE SODIUM TAB PO SCH (20:37)
[2016-06-29] MEDS: oxyCODONE IR 5 MG TAB PO PRN (20:37)
[2016-06-30] MEDS ORDERED: VANCOMYCIN HCL/NORMAL SALINE 250 ML IV SCH (02:30)
[2016-06-30] MEDS: VANCOMYCIN 750 MG in D5W 150 ML IV SCH ×2 (03:15→14:55)
[2016-06-30] MEDS: DABIGATRAN ETEXILATE MESYL 150 MG CAP PO SCH ×2 (08:00→21:26)
[2016-06-30] MEDS: INSULIN LISPRO 100 UNIT/ML SC SCH ×3 (08:00→17:50)
[2016-06-30] MEDS: SENNOSIDES/DOCUSATE SODIUM TAB PO SCH ×2 (08:00→20:37)
[2016-06-30] MEDS: ASPIRIN 81 MG CHEWABLE TAB PO SCH (08:00)
[2016-06-30] MEDS: EZETIMIBE 10 MG TAB PO SCH (08:00)
[2016-06-30] MEDS: metFORMIN SR 500 MG TAB PO SCH ×2 (08:00→17:56)
[2016-06-30] MEDS: MAGNESIUM HYDROXIDE 30 ML UDCUP PO PRN (09:49)
--- NOTE | 2016-06-30 15:08 | PCMIDPN ---
Assessment/Plan: Assessment/Plan: * Left hand MCP abscess/tenosynovitis due to MRSA status post incision and drainage: Overall improved with some residual edema and inflammatory findings over dorsum of fingers and forearm. Continue vancomycin. Will increase to 1 g q.12 hours based on trough findings. Repeat basic metabolic profile in a.m. to follow renal function on vancomycin. Will review operative findings with Dr. Naik to further understand extent of infection. * Right axillary rash: Appears fungal in etiology. Continue anti fungal powder. 06/30/16 15:05 06/30/16 15:06 Subjective: Patient with less hand pain and improved range of motion of fingers. Objective: Vital Signs Temp Pulse Resp BP Pulse Ox 36.8 C 99 20 141/100 H 97 06/30/16 08:20 06/30/16 08:20 06/30/16 08:20 06/30/16 08:20 06/30/16 08:20 Laboratory Results 06/29/16 05:16 06/29/16 05:16 06/29/16 06/30/16 07/01/16 05:59 05:59 05:59 Intake Total 155 350 250 Output Total 450 1325 300 Balance -295 -975 -50 Vancomycin # 3 Blood cultures x2 no growth Hand abscess with growth of MRSA susceptible to doxycycline and trimethoprim/ sulfamethoxazole - Physical Exam General Appearance: alert, no apparent distress EENT: No conjunctival petechiae Cardiac/Chest: regular rate, rhythm Extremities: inflammation (Left hand with erythema and edema over dorsum of digits and forearm; mild tenderness palpation; mild decrease in full ability to flex digits; 1st MCP region dressed postoperatively) ICD10 Worksheet Patient Problems: Problems Problem Status Onset Cellulitis Acute MRSA (methicillin resistant Staphylococcus aureus) Acute ~06/26/16 Nicotine dependence Active
--- NOTE | 2016-06-30 16:14 | HOSPPROG ---
Hospitalist Progress Note Assessment/Plan: Tenosynovitis with left MCP superficial abscess, not involving the joint - I&D done by Dr. Naik. Improving on IV Vanc. Cx grew MRSA sensitive to Vanc, Tetracycline. BCx's NGTD. ID following. -cont IV Vancomycin -possibly d/c on oral Doxy A fib - rate controlled, stroke prevention with Pradaxa, continue for now. DM - bg >200 on arrival. Improved now on SSI. CAD - stable, no symptoms, cont outpt meds. Full code Dispo - Cont inpt. PT/OT evals recommending SNF. Daughter would like him to go to [place]. CM consult requested. Subjective: Pt feels well. No fevers. Decreased swelling and less redness of hand. Improved ROM. No CP, SOB, abdominal pain or other complaints. Still weak and wishing for rehab. Objective: Vital Signs Temp Pulse Resp BP Pulse Ox 36.4 C 105 H 20 135/90 H 95 06/30/16 15:27 06/30/16 15:27 06/30/16 15:27 06/30/16 15:27 06/30/16 15:27 Laboratory Results 06/29/16 05:16 06/29/16 05:16 06/29/16 06/30/16 07/01/16 05:59 05:59 05:59 Intake Total 155 350 250 Output Total 450 1325 300 Balance -295 -975 -50 - Physical Exam Constitutional: no apparent distress Eyes: PERRL Ears, Nose, Mouth, Throat: moist mucous membranes Cardiovascular: regular rate and rhythym Respiratory: no respiratory distress Skin: warm Musculoskeletal: other (left hand with decreased erythema and edema, improved ROM) Neurologic: AAOx3 Psychiatric: interacting appropriately ICD10 Worksheet Patient Problems: Problems Problem Status Onset Cellulitis Acute MRSA (methicillin resistant Staphylococcus aureus) Acute ~06/26/16 Nicotine dependence Active
--- NOTE | 2016-06-30 16:35 | SOAPPROG ---
SOAP Progress Note Assessment/Plan: Assessment: This is very pleasant 86 year old male with significant history for left dorsal index finger dorsal MCPJ joint abscess (+MRSA) with surrounding cellulitis s/p I &D on 06/28/16. He is currently on IV antbx per infectious disease. He states his pain has improved since I&D on 06/28/16. PE: General: NAD AVSS LUE: Incision is well approximated with small 3mm opening packed with Nu Gauze no pain with passive or active ROM of left index MCPJ // no pain with passive or active ROM of left wrist +EDC-index, EIP, EDC-long, ring, and small fingers +FDS, FDP +DI, PI +M/R/U SILT Plan: 1. Dressing and packing removed. New sterile 1/4 inch Nu Gauze was packed and new dressing placed. 2. Continue IV antibiotics per infectious disease 3. Dressing will remain on for 2 days. In 2 days dressing will be removed and new packing strip will be placed. 06/30/16 16:05 Objective: Vital Signs Temp Pulse Resp BP Pulse Ox 36.4 C 105 H 20 135/90 H 95 06/30/16 15:27 06/30/16 15:27 06/30/16 15:27 06/30/16 15:27 06/30/16 15:27 Laboratory Results 06/29/16 05:16 06/29/16 05:16 06/29/16 06/30/16 07/01/16 05:59 05:59 05:59 Intake Total 155 350 250 Output Total 450 1328 300 Balance -295 -975 -50 ICD10 Worksheet Patient Problems: Problems Problem Status Onset Cellulitis Acute MRSA (methicillin resistant Staphylococcus aureus) Acute ~06/26/16 Nicotine dependence Active
[2016-07-01] MEDS: VANCOMYCIN HCL/NORMAL SALINE 250 ML IV SCH ×2 (03:02→14:04)
[2016-07-01 06:12] LABS: ANION GAP 7 mEq/L (8-16); CALCIUM 8.7 mg/dL (8.5-10.4); CARBON DIOXIDE 27 mEq/l (22-31); CHLORIDE 102 mEq/L (97-110); CREATININE 0.5 mg/dL (0.7-1.3); GLOMERULAR FILTRATION RATE > 60; GLUCOSE 162 mg/dL (70-100); POTASSIUM 4.5 mEq/L (3.5-5.2); SODIUM 136 mEq/L (134-144)
--- NOTE | 2016-07-01 09:24 | PCMIDPN ---
Assessment/Plan: Assessment: L hand extensor tenosynovitis with abscess and proximal cellulitis secondary to MRSA. Patient looks to be stable on IV Vancomycin. Tolerating well. Plan to continue this treatment for 2-3 weeks post-op. Plan: 1) Continue IV Vancomycin. Trough will accumulate over time. 2) Follow appearance and functional status of L hand. 07/01/16 22:00 07/01/16 22:01 Subjective: Patient doing well. No new events or complaints. Erythema over the L arm significantly decreased. No fevers or chills. Objective: Vancomycin #3 Vital Signs Temp Pulse Resp BP Pulse Ox 36.6 C 78 18 136/89 H 93 07/01/16 03:00 07/01/16 03:00 07/01/16 03:00 07/01/16 03:00 07/01/16 03:00 Laboratory Results 06/29/16 05:16 07/01/16 05:13 06/30/16 07/01/16 07/02/16 05:59 05:59 05:59 Intake Total 350 600 Output Total 1325 1275 200 Balance -975 -675 -200 - Physical Exam General Appearance: WD/WN, alert, no apparent distress, non-toxic Respiratory: lungs clear, normal breath sounds, No respiratory distress Cardiac/Chest: regular rate, rhythm, No tachycardia Extremities: non-tender, No normal inspection (L forearm and hand edema. Erythema over distal L forearm - dorsal aspect. ) Skin: normal color, warm/dry, No rash Neuro/Psych: alert, normal mood/affect, oriented x 3 ICD10 Worksheet Patient Problems: Problems Problem Status Onset Cellulitis Acute MRSA (methicillin resistant Staphylococcus aureus) Acute ~06/26/16 Nicotine dependence Active
[2016-07-01] MEDS: SENNOSIDES/DOCUSATE SODIUM TAB PO SCH ×2 (09:36→21:02)
[2016-07-01] MEDS: ASPIRIN 81 MG CHEWABLE TAB PO SCH (09:36)
[2016-07-01] MEDS: EZETIMIBE 10 MG TAB PO SCH (09:36)
[2016-07-01] MEDS: INSULIN LISPRO 100 UNIT/ML SC SCH ×3 (09:36→18:33)
[2016-07-01] MEDS: DABIGATRAN ETEXILATE MESYL 150 MG CAP PO SCH ×2 (09:36→21:02)
[2016-07-01] MEDS: metFORMIN SR 500 MG TAB PO SCH ×2 (09:36→18:33)
--- NOTE | 2016-07-01 12:10 | HOSPPROG ---
Hospitalist Progress Note Assessment/Plan: Tenosynovitis with left MCP superficial abscess, not involving the joint - I&D done by Dr. Naik. Improving on IV Vanc. Cx grew MRSA sensitive to Vanc, Tetracycline. BCx's NGTD. ID following. -cont IV Vancomycin with anticipation to complete 2 weeks of IV antibiotics A fib - rate controlled, stroke prevention with Pradaxa, continue for now. DM - bg >200 on arrival. Improved now on SSI. CAD - stable, no symptoms, cont outpt meds. Full code Dispo - Cont inpt. PT/OT evals recommending SNF. Daughter would like him to go to [place]. CM consult requested. Subjective: pain controlled. Denies any fevers or chills. Objective: Vital Signs Temp Pulse Resp BP Pulse Ox 36.6 C 78 18 136/89 H 93 07/01/16 03:00 07/01/16 03:00 07/01/16 03:00 07/01/16 03:00 07/01/16 03:00 Laboratory Results 06/29/16 05:16 07/01/16 05:13 06/30/16 07/01/16 07/02/16 05:59 05:59 05:59 Intake Total 350 600 Output Total 1325 1275 200 Balance -975 -896 -200 - Physical Exam Cardiovascular: regular rate and rhythym, no murmur, rub, or gallop Respiratory: no respiratory distress, no rales or rhonchi, clear to auscultation Musculoskeletal: other ( Left hand continues to be swollen with improving erythema) Neurologic: AAOx3 ICD10 Worksheet Patient Problems: Problems Problem Status Onset MRSA (methicillin resistant Staphylococcus aureus) Acute ~06/26/16 Nicotine dependence Active Cellulitis Acute
[2016-07-02] MEDS: VANCOMYCIN HCL/NORMAL SALINE 250 ML IV SCH ×2 (01:18→15:25)
[2016-07-02 04:37] VITALS: BP 157/94; PULSE 88; O2SAT 92
[2016-07-02] MEDS: INSULIN LISPRO 100 UNIT/ML SC SCH ×2 (07:54→12:20)
[2016-07-02] MEDS: metFORMIN SR 500 MG TAB PO SCH (07:54)
[2016-07-02 08:57] VITALS: RESP 20; TEMP 98.1
[2016-07-02] MEDS: EZETIMIBE 10 MG TAB PO SCH (09:05)
[2016-07-02] MEDS: ASPIRIN 81 MG CHEWABLE TAB PO SCH (09:05)
[2016-07-02] MEDS: DABIGATRAN ETEXILATE MESYL 150 MG CAP PO SCH (09:05)
[2016-07-02] MEDS: SENNOSIDES/DOCUSATE SODIUM TAB PO SCH (09:05)
--- NOTE | 2016-07-02 10:24 | PDIAF ---
- Diagnosis Diagnosis: MRSA left hand tenosynovitis Code Status: Full Code - Medication Management Discharge Medications: Medications to Continue on Transfer Aspirin [Aspirin 81mg (*)] 81 mg PO DAILY 06/28/16 [Last Taken 06/27/16] Cephalexin [Keflex (*)] 500 mg PO TID 06/28/16 [Last Taken 06/27/16 20:00] Cholecalciferol (Vitamin D3) [Vitamin D3] 5,000 unit PO DAILY 06/28/16 [Last Taken 06/27/16] Dabigatran Etexilate Mesyl [Pradaxa 150 MG (*)] 150 mg PO BID 06/28/16 [Last Taken 06/27/16 20:00] Ezetimibe [Zetia 10 MG (*)] 10 mg PO DAILY 06/28/16 [Last Taken 06/27/16] Herbals/Supplements -Info Only 1 ea PO DAILY 06/28/16 [Last Taken Unknown] metFORMIN SR [Glucophage XR 500 mg (*)] 1,000 mg PO BIDMEAL 06/28/16 [Last Taken 06/27/16] 2Nd [place] Antibiotics: Vancomycin 1 g IV q.12 hours 2Nd [facility]man Antibiotic Stop Date: 07/05/16 Discharge Medications: Refer to the Discharge Home Medication list for PRN reason. PICC Care - Routine: N/A (Peripheral IV) - Labs/Radiology BMP Date: 07/04/16 Call or Fax Lab and Imaging Results to: Dr. Weeks, - Follow Up Care Current Providers and Referrals: Sukhjinder Lundy MD [Primary Care Provider] - As per Instructions Kali Weeks MD [Medical Doctor] -
--- NOTE | 2016-07-02 10:31 | PCMIDPN ---
Assessment/Plan: Assessment/Plan: * Left hand MCP abscess/tenosynovitis due to MRSA status post incision and drainage: Overall improved with some decreased erythema and edema with improved range of motion of digits. Continue vancomycin x3 more days to complete 7 days in total. Check vancomycin trough today prior to discharge. Thereafter, plan 2 weeks of doxycycline 100 mg p.o. daily. Findings and plan reviewed with Dr. Cowan. 07/02/16 10:24 07/02/16 10:31 Subjective: Patient without specific complaints. Range of motion of left hand has improved. Objective: Vital Signs Temp Pulse Resp BP Pulse Ox 36.7 C 88 20 157/94 H 92 07/02/16 08:00 07/02/16 08:00 07/02/16 08:00 07/02/16 08:00 07/02/16 08:00 Laboratory Results 06/29/16 05:16 07/01/16 05:13 07/01/16 07/02/16 07/03/16 05:59 05:59 05:59 Intake Total 600 1550 250 Output Total 1275 1350 300 Balance -675 200 -50 Vancomycin # 4 Blood cultures x2 no growth - Physical Exam General Appearance: alert, no apparent distress Extremities: inflammation (Left hand with significant decrease in erythema and edema; erythema over forearms resolve; incision sites packed; range of motion of digits improved still with residual edema present ) Skin: other (Scattered ecchymoses) Lymphatic: other (No left upper extremity lymphangitis) ICD10 Worksheet Patient Problems: Problems Problem Status Onset Cellulitis Acute MRSA (methicillin resistant Staphylococcus aureus) Acute ~06/26/16 Nicotine dependence Active
--- NOTE | 2016-07-02 11:10 | PDIAF ---
- Diagnosis Diagnosis: MRSA left hand tenosynovitis Code Status: Full Code - Medication Management Discharge Medications: Medications to Continue on Transfer Aspirin [Aspirin 81mg (*)] 81 mg PO DAILY 06/28/16 [Last Taken 06/27/16] Cholecalciferol (Vitamin D3) [Vitamin D3] 5,000 unit PO DAILY 06/28/16 [Last Taken 06/27/16] Dabigatran Etexilate Mesyl [Pradaxa 150 MG (*)] 150 mg PO BID 06/28/16 [Last Taken 06/27/16 20:00] Ezetimibe [Zetia 10 MG (*)] 10 mg PO DAILY 06/28/16 [Last Taken 06/27/16] Herbals/Supplements -Info Only 1 ea PO DAILY 06/28/16 [Last Taken Unknown] metFORMIN SR [Glucophage XR 500 mg (*)] 1,000 mg PO BIDMEAL 06/28/16 [Last Taken 06/27/16] Acetaminophen [Tylenol 325mg (*)] 650 mg PO Q4HRS PRN #0 tab 07/02/16 [Last Taken Unknown] Polyethylene Glycol 3350 [Miralax 17 gm (*)] 17 gm PO DAILY PRN #0 pkt 07/02/16 [Last Taken Unknown] Sennosides/Docusate Sodium [Senokot-S] 1 - 2 tab PO BID #0 tab 07/02/16 [Last Taken Unknown] Vancomycin HCl/Normal Saline [Vancomycin 1 gm (Premix)] 1 gm IV Q12H #0 bag 01/10 [Last Taken Unknown] Custodial Antibiotics: Vancomycin 1 g IV q.12 hours then doxycycline 100mg bid x 14 days Laundry Housekeeping Aide Antibiotic Stop Date: 07/05/16 Discharge Medications: Refer to the Discharge Home Medication list for PRN reason. PICC Care - Routine: N/A (Peripheral IV) - Orders Diet Recommendation: no restrictions on diet Diet Texture: Regular Texture Diet - Labs/Radiology BMP Date: 07/04/16 Call or Fax Lab and Imaging Results to: Dr. Weeks, - Follow Up Care Current Providers and Referrals: Sukhjinder Lundy MD [Primary Care Provider] - As per Instructions Kail Weeks MD [Medical Doctor] - 07/08/16 2:30 pm
--- NOTE | 2016-07-02 11:11 | PDIAF ---
- Diagnosis Diagnosis: MRSA left hand tenosynovitis Code Status: Full Code - Medication Management Discharge Medications: Medications to Continue on Transfer Aspirin [Aspirin 81mg (*)] 81 mg PO DAILY 06/28/16 [Last Taken 06/27/16] Cholecalciferol (Vitamin D3) [Vitamin D3] 5,000 unit PO DAILY 06/28/16 [Last Taken 06/27/16] Dabigatran Etexilate Mesyl [Pradaxa 150 MG (*)] 150 mg PO BID 06/28/16 [Last Taken 06/27/16 20:00] Ezetimibe [Zetia 10 MG (*)] 10 mg PO DAILY 06/28/16 [Last Taken 06/27/16] Herbals/Supplements -Info Only 1 ea PO DAILY 06/28/16 [Last Taken Unknown] metFORMIN SR [Glucophage XR 500 mg (*)] 1,000 mg PO BIDMEAL 06/28/16 [Last Taken 06/27/16] Acetaminophen [Tylenol 325mg (*)] 650 mg PO Q4HRS PRN #0 tab 07/02/16 [Last Taken Unknown] Polyethylene Glycol 3350 [Miralax 17 gm (*)] 17 gm PO DAILY PRN #0 pkt 07/02/16 [Last Taken Unknown] Sennosides/Docusate Sodium [Senokot-S] 1 - 2 tab PO BID #0 tab 07/02/16 [Last Taken Unknown] Vancomycin HCl/Normal Saline [Vancomycin 1 gm (Premix)] 1 gm IV Q12H #0 bag 01/10 [Last Taken Unknown] Retirement Antibiotics: Vancomycin 1 g IV q.12 hours then doxycycline 100mg daily x 14 days Retirement Antibiotic Stop Date: 07/05/16 Discharge Medications: Refer to the Discharge Home Medication list for PRN reason. PICC Care - Routine: N/A (Peripheral IV) - Orders Diet Recommendation: no restrictions on diet Diet Texture: Regular Texture Diet - Labs/Radiology BMP Date: 07/04/16 Call or Fax Lab and Imaging Results to: Dr. Weeks, - Follow Up Care Current Providers and Referrals: Sukhjinder Lundy MD [Primary Care Provider] - As per Instructions Kali Weeks MD [Medical Doctor] - 07/08/16 2:30 pm
--- NOTE | 2016-07-02 11:13 | PDIAF ---
- Diagnosis Diagnosis: MRSA left hand tenosynovitis Code Status: Full Code - Medication Management Discharge Medications: Medications to Continue on Transfer Aspirin [Aspirin 81mg (*)] 81 mg PO DAILY 06/28/16 [Last Taken 06/27/16] Cholecalciferol (Vitamin D3) [Vitamin D3] 5,000 unit PO DAILY 06/28/16 [Last Taken 06/27/16] Dabigatran Etexilate Mesyl [Pradaxa 150 MG (*)] 150 mg PO BID 06/28/16 [Last Taken 06/27/16 20:00] Ezetimibe [Zetia 10 MG (*)] 10 mg PO DAILY 06/28/16 [Last Taken 06/27/16] Herbals/Supplements -Info Only 1 ea PO DAILY 06/28/16 [Last Taken Unknown] metFORMIN SR [Glucophage XR 500 mg (*)] 1,000 mg PO BIDMEAL 06/28/16 [Last Taken 06/27/16] Acetaminophen [Tylenol 325mg (*)] 650 mg PO Q4HRS PRN #0 tab 07/02/16 [Last Taken Unknown] Polyethylene Glycol 3350 [Miralax 17 gm (*)] 17 gm PO DAILY PRN #0 pkt 07/02/16 [Last Taken Unknown] Sennosides/Docusate Sodium [Senokot-S] 1 - 2 tab PO BID #0 tab 07/02/16 [Last Taken Unknown] Vancomycin HCl/Normal Saline [Vancomycin 1 gm (Premix)] 1 gm IV Q12H #0 bag 01/10 [Last Taken Unknown] Alf Antibiotics: Vancomycin 1 g IV q.12 hours then doxycycline 100mg daily x 14 days Alf Antibiotic Stop Date: 07/05/16 Discharge Medications: Refer to the Discharge Home Medication list for PRN reason. PICC Care - Routine: N/A (Peripheral IV) - Orders Diet Recommendation: no restrictions on diet Diet Texture: Regular Texture Diet Wound Care Instructions: wound packing and dressing change every 2 days - Labs/Radiology BMP Date: 07/04/16 Call or Fax Lab and Imaging Results to: Dr. Weeks, - Follow Up Care Current Providers and Referrals: Sukhjinder Lundy MD [Primary Care Provider] - As per Instructions Kali Weeks MD [Medical Doctor] - 07/08/16 2:30 pm
--- NOTE | 2016-07-02 11:15 | PDIAF ---
- Diagnosis Diagnosis: MRSA left hand tenosynovitis Code Status: Full Code - Medication Management Discharge Medications: Medications to Continue on Transfer Aspirin [Aspirin 81mg (*)] 81 mg PO DAILY 06/28/16 [Last Taken 06/27/16] Cholecalciferol (Vitamin D3) [Vitamin D3] 5,000 unit PO DAILY 06/28/16 [Last Taken 06/27/16] Dabigatran Etexilate Mesyl [Pradaxa 150 MG (*)] 150 mg PO BID 06/28/16 [Last Taken 06/27/16 20:00] Ezetimibe [Zetia 10 MG (*)] 10 mg PO DAILY 06/28/16 [Last Taken 06/27/16] Herbals/Supplements -Info Only 1 ea PO DAILY 06/28/16 [Last Taken Unknown] metFORMIN SR [Glucophage XR 500 mg (*)] 1,000 mg PO BIDMEAL 06/28/16 [Last Taken 06/27/16] Acetaminophen [Tylenol 325mg (*)] 650 mg PO Q4HRS PRN #0 tab 07/02/16 [Last Taken Unknown] Polyethylene Glycol 3350 [Miralax 17 gm (*)] 17 gm PO DAILY PRN #0 pkt 07/02/16 [Last Taken Unknown] Sennosides/Docusate Sodium [Senokot-S] 1 - 2 tab PO BID #0 tab 07/02/16 [Last Taken Unknown] Vancomycin HCl/Normal Saline [Vancomycin 1 gm (Premix)] 1 gm IV Q12H #0 bag 01/10 [Last Taken Unknown] Assisted Antibiotics: Vancomycin 1 g IV q.12 hours then doxycycline 100mg BID x 14 days Ply[employer] Layup Line Core Layer Antibiotic Stop Date: 07/05/16 Discharge Medications: Refer to the Discharge Home Medication list for PRN reason. PICC Care - Routine: N/A (Peripheral IV) - Orders Diet Recommendation: no restrictions on diet Diet Texture: Regular Texture Diet Wound Care Instructions: wound packing and dressing change every 2 days - Labs/Radiology BMP Date: 07/04/16 Call or Fax Lab and Imaging Results to: Dr. Weeks, - Follow Up Care Current Providers and Referrals: Sukhjinder Lundy MD [Primary Care Provider] - As per Instructions Kali Weeks MD [Medical Doctor] - 07/08/16 2:30 pm
--- NOTE | 2016-07-02 16:12 | GDS ---
[f rep st] DISCHARGE SUMMARY DISCHARGE DIAGNOSIS: 1. Left hand metacarpophalangeal abscess with tenosynovitis due to methicillin- resistant Staphylococcus aureus. 2. Rate-controlled atrial fibrillation. 3. Diabetes mellitus. 4. Coronary artery disease. CONSULTANTS: Dr. Erik De Luna, Infectious Disease. Lorne Naik, Orthopedic Surgery. HOSPITAL COURSE AND STAY BY PROBLEM: Methicillin-resistant Staphylococcus aureus, left hand abscess with cellulitis and tenosynovitis: The patient as admitted to the hospital and taken the operating room on 06/28/[address] Naik where he had I and D of his left dorsal index finger metacarpophalangeal joint abscess, decompression, as well as left index finger extensor digitorum communis and extensor indicis tendon sheath drainage. The patient has been treated with IV vancomycin. Postoperatively, he has done well. On day of discharge, the patient is agreeable to discharge to a senior care facility where he will complete IV vancomycin through this coming 07/05/2016. He should then be started on doxycycline 100 mg p.o. twice daily to complete 2 more weeks of treatment. The patient will need dressing changes every 2 days with wound packing and dressing changes. He should follow up with Dr. Naik. PHYSICAL EXAM: VITAL SIGNS: On day of discharge, blood pressure 137/94, pulse of 88, respiratory rate 20, O2 saturation 92% on room air. Temperature afebrile. GENERAL: No acute distress. HEART: S1, S2. LUNGS: Clear. ABDOMEN: Soft. EXTREMITIES: No edema. Left hand has a clean, dry dressing in place with improving erythema. PROCEDURES DONE THIS HOSPITAL STAY: I and D by Dr. Naik on 06/28/2016. DISCHARGE MEDICATIONS: Please refer to discharge medication reconciliation in [facility] for details. DISCHARGE INSTRUCTIONS: The patient will be transferred to senior care facility for further rehabilitation and to complete his course of IV vancomycin. He should follow up with Dr. Naik as instructed. Greater than 30 minutes were spent on the discharge of this patient /[id number]/MODL MTDD
--- NOTE | 2016-07-02 17:26 | SOAPPROG ---
SOAP Progress Note Assessment/Plan: Assessment: This is very pleasant 86 year old male with significant history for left dorsal index finger dorsal MCPJ joint abscess (+MRSA) with surrounding cellulitis s/p I &D on 06/28/16. He is currently on IV antbx per infectious disease. He states his pain has improved since I&D on 06/28 and dressing change on 06/30. PE: General: NAD AVSS LUE: Incision is well approximated with small 3mm opening packed with Nu Gauze no pain with passive or active ROM of left index MCPJ // no pain with passive or active ROM of left wrist +EDC-index, EIP, EDC-long, ring, and small fingers +FDS, FDP +DI, PI +M/R/U SILT Plan: 1. Dressing and packing removed. New sterile 1/4 inch Nu Gauze was packed and new dressing placed. 2. Continue IV antibiotics per infectious disease 3. Pt is being transferred to [facility] ([facility]). Dressing will remain on for 2 days. In 2 days dressing will be removed and new packing strip will be placed. Dressing will need to be changed every 2 days and new Nu Gauze placed. 4. Pt will follow up in our office. 06/30/16 16:05 07/02/16 17:24 Objective: Vital Signs Temp Pulse Resp BP Pulse Ox 36.7 C 88 20 157/94 H 92 07/02/16 08:00 07/02/16 08:00 07/02/16 08:00 07/02/16 08:00 07/02/16 08:00 Laboratory Results 06/29/16 05:16 07/01/16 05:13 07/01/16 07/02/16 07/03/16 05:59 05:59 05:59 Intake Total 600 1550 250 Output Total 1275 1350 300 Balance -675 200 -50 ICD10 Worksheet Patient Problems: Problems Problem Status Onset Nicotine dependence Active Cellulitis Acute MRSA (methicillin resistant Staphylococcus aureus) Acute ~06/26/16
== END 2016-07-02 16:54 | DRG 513 ==
LOC: F1N 11:54 → EDLOC 11:54
PROVIDERS: ADMIT Hospitalist; ATTEND Hospitalist
DX: M65.142 Other infective (teno)synovitis, left hand (principal); L03.114 Cellulitis of left upper limb; L02.512 Cutaneous abscess of left hand; B95.62 Methicillin resistant Staphylococcus aureus infection as the cause of diseases classified elsewhere; I48.91 Unspecified atrial fibrillation; E11.40 Type 2 diabetes mellitus with diabetic neuropathy, unspecified; G47.33 Obstructive sleep apnea (adult) (pediatric); Z95.5 Presence of coronary angioplasty implant and graft; Z95.3 Presence of xenogenic heart valve; Z95.0 Presence of cardiac pacemaker; Z87.891 Personal history of nicotine dependence; Z95.1 Presence of aortocoronary bypass graft
CPT/HCPCS: 96365; 97110-GP; 97116-GP; 97162-GP; 97165-GO; 97530-GO; 97530-GP; G8978-GP-CL; G8979-GP-CJ; G8987-GO-CK; G8988-GO-CJ; J1815; J3370

== ENCOUNTER → 2017-04-08 | Outpatient (CLI) | payer OTHER | LOC: BMCIMAGING 10:11 | PROVIDERS: ATTEND Internal Medicine Cardiovascular Disease | DX: I51.7 Cardiomegaly (principal); J98.09 Other diseases of bronchus, not elsewhere classified ==

== ENCOUNTER → 2017-09-06 | Outpatient (CLI) | payer OTHER | LOC: FIMAGING 15:11 | PROVIDERS: ATTEND Internal Medicine Cardiovascular Disease | DX: K59.00 Constipation, unspecified (principal); I25.10 Atherosclerotic heart disease of native coronary artery without angina pectoris; I48.91 Unspecified atrial fibrillation; I47.2 Ventricular tachycardia; Z95.0 Presence of cardiac pacemaker ==

== ENCOUNTER → 2017-09-10 | Outpatient (CLI) | payer OTHER | LOC: BMCIMAGING 09:59 | PROVIDERS: ATTEND Orthopaedic Surgery Hand Surgery | DX: M19.011 Primary osteoarthritis, right shoulder (principal); M19.012 Primary osteoarthritis, left shoulder ==

== ENCOUNTER → 2017-10-14 | Outpatient (CLI) | payer OTHER | LOC: BHFA 14:00 | PROVIDERS: ATTEND Internal Medicine Cardiovascular Disease | DX: I25.10 Atherosclerotic heart disease of native coronary artery without angina pectoris (principal); I48.91 Unspecified atrial fibrillation ==

== ENCOUNTER → 2017-10-25 | Outpatient (CLI) | payer OTHER | LOC: FIMAGING 11:17 | PROVIDERS: ATTEND Internal Medicine Cardiovascular Disease | DX: Z51.81 Encounter for therapeutic drug level monitoring (principal); I51.7 Cardiomegaly; J98.9 Respiratory disorder, unspecified; Z79.899 Other long term (current) drug therapy; Z95.2 Presence of prosthetic heart valve; Z95.0 Presence of cardiac pacemaker ==